=== PATIENT | female | born 1990 | race Caucasian/White ===

== ENCOUNTER 2018-03-02 16:44 | Emergency (ER) | payer MEDICAID ==
[2018-03-02 16:52] VITALS: BP 123/72
--- NOTE | 2018-03-02 17:22 | ER Document Report ---
ED ENT - General Chief Complaint: Ear Pain Stated Complaint: RIGHT EAR PAIN Time Seen by Provider: 03/02/18 17:08 Mode of Arrival: Ambulatory Information source: Patient TRAVEL OUTSIDE OF THE [place] IN LAST 30 DAYS: No - HPI Patient complains to provider of: Ear problem Onset: Other - few days Notes: Patient is here with complaints of right ear pain. States the pain is been present for the last few days. No fever. No injury. No drainage. She denies any nasal congestion or runny nose. She had a mild sore throat. She denies any rash. No redness or swelling the outside of the ear. No chest pain or shortness of breath. No abdominal pain. No nausea, vomiting, diarrhea. No dizziness. No other complaints at this time. Past Medical History - Social History Smoking Status: Unknown if Ever Smoked Family History: Reviewed & Not Pertinent Review of Systems - Review of Systems -: Yes All other systems reviewed and negative Physical Exam - Vital signs Vitals: Temp Pulse Resp BP Pulse Ox 98.8 F 85 18 123/72 99 03/02/18 16:50 03/02/18 16:50 03/02/18 16:50 03/02/18 16:50 03/02/18 16:50 - Notes Notes: GENERAL: alert, cooperative, nontoxic, no distress. HEAD: normocephalic, atraumatic EYES: conjunctiva pink without discharge, no external redness or swelling. EARS: no external swelling, no external redness, no mastoid redness, swelling, tenderness. Swelling and mild erythema to the right ear canal. No drainage. Tenderness with palpation of the tragus and movement of the auricle. TMs pearly melton, no redness, no bulging, normal landmarks, no perforation. NOSE: atraumatic, no external swelling. clear rhinorrhea noted. MOUTH/THROAT: mucous membranes moist and pink, posterior pharynx without erythema, swelling, exudate. No trismus or drooling. NECK: soft, supple, full range of motion, no meningismus. CHEST: no distress, lungs clear and equal throughout. No wheezing, rales, rhonchi. CARDIAC: regular rate and rhythm, no murmur, normal capillary refill, normal pulses. No peripheral edema noted. BACK: full range of motion, no CVA tenderness. EXTREMITIES: full range of motion of all extremities. No redness, no swelling. NEURO: alert and oriented A&O3, no focal deficits, full range of motion of all extremities. PYSCH: appropriate mood, affect. Patient is cooperative. SKIN: pink, warm, dry, no rash. Course - Re-evaluation Re-evalutation: 03/02/18 17:19 Patient is nontoxic appearing with stable vitals. Is here with complaints of right ear pain for the last few days. On exam she has a right otitis externa. No perforation of the TM. No sign of mastoiditis. She is otherwise nontoxic appearing. Patient will be discharged home on Ciprodex and given a prescription for Ultram. She is instructed to take Tylenol Motrin as needed for pain as well. Follow-up if not better in 2-3 days, sooner for worsening pain, fever, redness or swelling around the outside ear, persistent vomiting, or for any further concerns. The patient is noted to have elevated blood pressure during today's emergency department visit. The patient was informed of this finding. The patient was instructed that this may be related to pre-hypertension and requires further evaluation with a primary care provider. The patient has no hypertensive symptoms at this time. The patient's emergency department workup and current diagnosis were explained to the patient and or family. Follow-up instructions were provided. Medications if prescribed were discussed. Instructions for when to return to the emergency department including specific worrisome symptoms were discussed with the patient and/or family. - Vital Signs Vital signs: Temp Pulse Resp BP Pulse Ox 98.8 F 85 18 123/72 99 03/02/18 16:50 03/02/18 16:50 03/02/18 16:50 03/02/18 16:50 03/02/18 16:50 Discharge - Discharge Clinical Impression: Otitis externa Qualifiers: Otitis externa type: diffuse Chronicity: acute Laterality: right Qualified Code (s): H60.311 - Diffuse otitis externa, right ear Condition: Stable Disposition: HOME, SELF-CARE Instructions: Use of Ear Drops ([facility]), Otitis Externa ([facility]) Additional Instructions: Take medications as prescribed. Follow-up if not improving in the next 2-3 days , sooner for worsening pain, fever, redness or swelling around the outside ear, persistent vomiting, dizziness, or for any further concerns. Your blood pressure was elevated during today's visit. Have this rechecked with your doctor. The medication you were prescribed today may cause drowsiness. Do not drive or operate heavy machinery while taking this medication. Prescriptions: Tramadol HCl [Ultram 50 mg Tablet] 50 mg PO Q6HP PRN #10 tablet PRN Reason: Ciprofloxacin HCl/Dexameth [Ciprodex Otic Suspension 7.5 ml Bottle] 4 drop OT BID #1 bottle Forms: Elevated Blood Pressure, Smoking Cessation Education Referrals: [facility] [Provider Group] - Follow up as needed
== END 2018-03-02 17:31 | disposition home or self-care (01) ==
LOC: ER 16:44
DX: H60.311 Diffuse otitis externa, right ear (principal); H92.01 Otalgia, right ear; R03.0 Elevated blood-pressure reading, without diagnosis of hypertension
CPT/HCPCS: 99282